=== PATIENT | female | born 1990 | race Native Hawaiian/Other Pacific Islander ===

== ENCOUNTER 2018-11-22 05:40 | Inpatient (IN) | payer OTHER ==
[2018-11-22] MEDS ORDERED: LACTATED RINGERS 1,000 ML ONE (05:47)
[2018-11-22 06:49] LABS: Hematocrit 36.7 % (30.3-42.9); Hemoglobin 12.7 gm/dl (10.1-14.3); Mean Corpuscular HGB Conc 35 % (30-34); Mean Corpuscular Volume 94 fl (79-97); Platelet Count 149 K/mm3 (140-440); Red Blood Count 3.89 M/mm3 (3.65-5.03); Red Cell Distribution Width 14.2 % (13.2-15.2)
[2018-11-22] MEDS ORDERED: LACTATED RINGERS 1,000 ML IV ONE (07:01)
--- NOTE | 2018-11-22 07:03 | Anesthesia Consultation ---
Anesthesia Consult and Med Hx Date of service: 11/22/18 - Airway Anesthetic Teeth Evaluation: Good ROM Head & Neck: Adequate Mental/Hyoid Distance: Adequate Mallampati Class: Class II Intubation Access Assessment: Probably Good - Pulmonary Exam CTA: Yes - Cardiac Exam Cardiac Exam: RRR - Pre-Operative Health Status ASA Pre-Surgery Classification: ASA2 Proposed Anesthetic Plan: Spinal - Pulmonary Hx Asthma: No COPD: No Hx Pneumonia: No - Cardiovascular System Hx Hypertension: No - Central Nervous System Hx Seizures: No Hx Psychiatric Problems: No - Endocrine Hx Renal Disease: No Hx End Stage Renal Disease: No Hx Hypothyroidism: No Hx Hyperthyroidism: No - Hematic Hx Anemia: No Hx Sickle Cell Disease: No - Other Systems Hx Alcohol Use: No
[2018-11-22] MEDS ORDERED: NARCAN 0.4 MG/1 ML IV PRN ×2 (07:04→10:19)
[2018-11-22] MEDS ORDERED: PHENERGAN PR PRN ×2 (07:04→10:11)
[2018-11-22] MEDS ORDERED: ZOFRAN IV PRN ×3 (07:04→10:19)
[2018-11-22] MEDS ORDERED: DILAUDID IV PRN ×2 (07:04)
[2018-11-22] MEDS ORDERED: PHENERGAN PO PRN ×2 (07:04→10:11)
[2018-11-22] MEDS ORDERED: NUBAIN IV PRN (07:04)
--- NOTE | 2018-11-22 07:04 | Anesthesia Day of Surgery ---
Anesthesia Day of Surgery - Day of Surgery Patient Examined: Yes Patient H&P Reviewed: Yes Patient is NPO: Yes
[2018-11-22] MEDS ORDERED: PITOCin/NS 20 UNIT/1000ML DRIP 20,000 MILLIUNITS/1,000 ML BAG IV ONE ×3 (07:17→10:24)
[2018-11-22] MEDS ORDERED: REGLAN ONE (07:17)
[2018-11-22] MEDS ORDERED: ANCEF/STERILE WATER 2 GM/20 ML 2 GM/20 ML SYRINGE IV ONE (07:18)
[2018-11-22] MEDS ORDERED: BICITRA ONE (07:18)
[2018-11-22] MEDS ORDERED: DEXMEDETOMIDINE IV ONE (07:21)
[2018-11-22] MEDS ORDERED: ZOFRAN ONE ×2 (07:29)
[2018-11-22] MEDS ORDERED: SODIUM CHLORIDE FLUSH SYRINGE 10 ML IV NR ×2 (08:00→11:00)
--- NOTE | 2018-11-22 08:32 | History and Physical Report ---
History of Present Illness Date of examination: 11/22/18 Date of admission: 11/22/18 05:57 Chief complaint: Here for a 4th delivery. History of present illness: , EDC 11/28/2018. Past History Past Medical History: no pertinent history - Obstetrical History : 4 Medications and Allergies Allergies Allergy/AdvReac Type Severity Reaction Status Date / Time No Known Allergies Allergy Unverified 11/22/18 05:59 Active Meds: Active Medications Hydromorphone HCl (Dilaudid) 0.5 mg IV Q4H PRN PRN Reason: breakthrough pain > 7/10 Hydromorphone HCl (Dilaudid) 0.5 mg IV Q5M PRN PRN Reason: Breakthrough Pain Stop: 11/22/18 18:00 Nalbuphine HCl (Nubain) 10 mg IV Q2H PRN PRN Reason: Pain, Moderate (4-6) Naloxone HCl (Narcan 0.4 Mg/1 Ml) 0.2 mg IV Q2MIN PRN PRN Reason: Res Rate </= 8 or 02 SAT < 92% Ondansetron HCl (Zofran) 4 mg IV Q8H PRN PRN Reason: Nausea And Vomiting Promethazine HCl (Phenergan) 25 mg PO Q6H PRN PRN Reason: Nausea And Vomiting Promethazine HCl (Phenergan) 25 mg [place] Q6H PRN PRN Reason: Nausea And Vomiting Sodium Chloride (Sodium Chloride Flush Syringe 10 Ml) 10 ml IV PRN NR Stop: 11/24/18 23:59 Review of Systems All systems: negative - Vital Signs Vital signs: Vital Signs Temp 98.5 F 11/22/18 08:10 Temp Pulse Resp BP Pulse Ox 98.5 F 96 H 119/73 11/22/18 08:10 11/22/18 08:22 11/22/18 08:22 - Physical Exam Breasts: Positive: deferred Lungs: Positive: Clear to auscultation Abdomen: Positive: soft Uterus: Positive: enlarged - Obstetrical FHR: category 1 Results Result Diagrams: 11/22/18 06:10 Abnormal lab results 11/22/18 Range/Units 06:10 MCH 33 H (28-32) pg MCHC 35 H (30-34) % All other labs normal. Assessment and Plan - Patient Problems (1) Current Visit: Yes Status: Acute (2) Previous delivery affecting , antepartum Current Visit: Yes Status: Acute Plan to address problem: For imminent delivery.
[2018-11-22] MEDS ORDERED: WATER FOR IRRIG STERILE IR ONE (08:51)
[2018-11-22] MEDS ORDERED: NACL 0.9% IR ONE (08:51)
[2018-11-22] MEDS ORDERED: PHENYLEPHRINE/NS Syringe 1,000 MCG/10 ML IV ONE (09:05)
[2018-11-22] MEDS ORDERED: BENADRYL ONE (09:48)
[2018-11-22] MEDS ORDERED: TORADOL ONE (09:48)
--- NOTE | 2018-11-22 10:11 | Post Anesthesia Evaluation ---
- Post Anesthesia Evaluation Patient Participated: Yes Airway Patent: Yes Stable Respiratory Function: Yes Nausea/Vomiting: No Temp > 96.8F: Yes Pain Manageable: Yes Adequeate Hydration: Yes Anesthesia Complications: No Block Receding Appropriately: Yes Patient on Ventilator: No
[2018-11-22] MEDS ORDERED: LANSINOH TP PRN (10:19)
[2018-11-22] MEDS ORDERED: TUCKS PAD TP PRN (10:19)
--- NOTE | 2018-11-22 10:31 | Operative Report ---
Operative Report Operative Report: Date of Surgery: . Admitting Dx: Term , 3 previous cesareans., probable adhesions. Post Op Dx: Same, plus peritoneal adhesions. Procedures: delivery, Lysis of adhesions. Surgeon: MD John Packer And Carry Out, Candis Domingo CRNA. Anesthesia: Spinal block. Complications: none EBL: 600cc Findings: Live baby boy 8lbs 13 oz, Apgars 9/9. In vertex presentation. Both ovaries and fallopian tubes were grossly normal. The anterior aspect of the uterus was bound by dense peritoneal adhesions to surrounding structures including the inferios aspect of the greater omentum and anterior abdominal wall. Procedure in details: The patient was taken to the operating room and given a spinal block. She was placed in the straight supine postion with a slight lateral tilt. An indwelling Crabtree's catheter was placed. She was draped. A time out was done. With the go ahead from the candy starch mold printer a Pfannenstiel incision was made. This was placed over a previous scar. The Fascia was divided transversely. The recti abdominis muscle flaps were dissected off the fascia using blunt and sharp dissections. The anterior parietal peritoneum was carefully identified and cut. The laparotomy was widened by stretching. The Bladder blade was applied. The utero vescical peritoneal flap was divided transversely allowing the bladder to be displaced caudally. The uterine incision was placed transversely in the lower segment. The cavity of the uterus was entered bluntly with the hemostat. The amniotic sac ruptured with clear fluid. The head of the was lifted out of the pelvis and delivered using fundal pressure. The airways were bulb suctioned beginning with the mouth. The umbilical cord was double clamped and divided. The baby was safely passed over to the Pediatric team. The placenta was manually removed. The uterine cavity was explored and was empty of any placental remnants. The uterine incision was repaired in one layer with #0 vicryl. The suture line was hemostatic. Blood and clots were cleared from the peritoneal cavity. The anterior parietal peritoneum was closed with #0vicryl. The fascia was closed with #0 vicryl. The skin was closed subcuticularly with #4-0 vicryl on a Bony needle. The patient tolerated the procedure well. There were no complications. EBL was 600cc. The sponge and instrument counts were correct. The Patient was transferred to the recovery room in very good condition.
[2018-11-22] MEDS ORDERED: PITOCin/NS 20 UNIT/1000ML DRIP 20 UNITS/1,000 ML BAG IV SCH ×2 (11:00→19:00)
[2018-11-22] MEDS ORDERED: METHERGINE IM ONE ×2 (11:10→11:11)
[2018-11-22] MEDS ORDERED: REGLAN IV ONE (11:16)
[2018-11-22] MEDS ORDERED: BICITRA PO ONE (11:17)
[2018-11-22] MEDS: TORADOL IV PRN ×2 (15:20→20:54)
[2018-11-22] MEDS: MORPHINE IV PRN (17:27)
[2018-11-22] MEDS: ANCEF/NS 1 GM/50 ML 1 GM/50 ML BAG IV SCH (17:27)
[2018-11-22] MEDS ORDERED: CYTOTEC PR ONE (18:07)
[2018-11-22] MEDS ORDERED: CYTOTEC ONE (18:18)
--- NOTE | 2018-11-22 19:25 | Event Note ---
Date: 11/22/18 Late entry for 6:20 PM: Was called to evaluate patient for vaginal bleeding around 6:00 PM. Patient alert and oriented, in no apparent distress. Patient denies dizziness, lightheadedness, chest pain, shortness of breath, or any other symptoms. Patient is post-op day of delivery after a repeat LTCS with lysis of adhesions. Patient is lying on a chux pad and also has a peripad on. Moderate amount of maroon lochia with clots noted on peripad; peripad saturated. No active bleeding noted. With fundal massage, small amount of maroon lochia expressed. No bright red bleeding at present time. Chux pad under buttocks has some bright red blood on it, but peripad has only maroon lochia with several clots. Fundus firm and midline at 2 FB above umbilicus. Crabtree catheter in place draining clear yellow urine. Consulted with Dr. Lopez re: patient and he states to run Pitocin all night and to give Cytotec rectally. Cytotec 800 mcg placed rectally at 18:20 per MD order. Pitocin orders put in per MD recommendation.
[2018-11-22 22:54] LABS: Hematocrit 29.1 % (30.3-42.9); Hemoglobin 10.1 gm/dl (10.1-14.3)
[2018-11-23] MEDS: MORPHINE IV PRN (03:09)
[2018-11-23] MEDS: ANCEF/NS 1 GM/50 ML 1 GM/50 ML BAG IV SCH (03:11)
[2018-11-23] MEDS: IBUPROFEN PO PRN ×3 (09:38→23:56)
[2018-11-23] MEDS: PRENATAL VITAMIN PO SCH (09:39)
[2018-11-23] MEDS: NORCO 5/325 PO PRN ×2 (09:39→16:50)
[2018-11-23] MEDS: FEOSOL PO SCH (09:43)
--- NOTE | 2018-11-23 12:03 | Progress Note ---
Assessment and Plan A: /postop day 1 S/P repeat low transverse section with lysis of adhesions. P: Encouraged ambulation today. Advance diet once patient is passing gas. Supplement with oral iron once tolerating a regular diet. Subjective - Subjective Date of service: 11/23/18 Principal diagnosis: /postop day 1 S/P repeat LTCS with lysis of adhesions Interval history: /postop day 1 S/P low transverse section with lysis of adhesions. Doing well. Patient reports small amount of lochia. Patient is voiding without difficulty. Not passing gas yet. Tolerating a liquid diet without nausea or vomiting. Patient has ambulated to bathroom; plans to ambulate in dang today. Patient denies headache, cough, dizziness, shortness of breath, chest pain, leg pain, abdominal pain, or heavy bleeding. Patient reports: appetite normal, voiding normally, pain well controlled, ambulating normally, no dizzy ambulation, no flatus, no nauseated [place]: doing well Objective - Vital Signs Latest vital signs: Vital Signs Temp Pulse Resp BP BP Pulse Ox 11/23/18 07:25 98.3 F 87 16 114/63 96 11/23/18 05:02 98.6 F 93 H 18 113/63 97 11/23/18 04:00 98.0 F 68 130/67 11/22/18 21:58 99.5 F 86 20 109/51 96 11/22/18 17:27 20 11/22/18 17:03 97.6 F 81 16 118/54 98 11/22/18 15:50 20 11/22/18 15:20 20 11/22/18 12:30 97.8 F 70 20 123/64 Intake and Output 11/22/18 11/23/18 11/23/18 23:59 07:59 15:59 Intake Total 170 240 120 Output Total 1300 650 Balance -1130 -410 120 Intake: IV 50 ANCEF/NS 1 GM/50 ML 1 gm 50 In 50 ml @ 100 mls/hr IV Q8H [facility] Rx#:[id number] Oral 120 240 120 Output: Urine 1300 650 Indwelling Catheter 1300 Void 650 Other: Total, Intake Amount 120 240 120 Total, Output Amount 600 350 # Voids Void 1 - Exam Abdomen: Present: normal appearance, soft, normal bowel sounds. Absent: distention, tenderness, guarding, rigidity Uterus: Present: normal, firm, fundal height below umbilicus. Absent: bogginess, tenderness Extremities: Present: normal, edema (mild bilateral pedal edema). Absent: tenderness Incision: Present: normal, dry, intact, dressed - Labs Labs: Abnormal lab results 11/22/18 Range/Units 22:33 Hct 29.1 L D (30.3-42.9) %
[2018-11-24] MEDS: NORCO 5/325 PO PRN ×2 (07:31→16:29)
[2018-11-24] MEDS: PRENATAL VITAMIN PO SCH (10:30)
[2018-11-24] MEDS: FEOSOL PO SCH (10:30)
--- NOTE | 2018-11-24 11:47 | Progress Note ---
Assessment and Plan A: /postop day 2 S/P repeat low transverse section with lysis of adhesions. Anemia secondary to and blood loss. P: Continue iron supplementation. Continue ambulation. Subjective - Subjective Date of service: 11/24/18 Principal diagnosis: /postop day 2 S/P repeat LTCS with lysis of adhesions Interval history: /postop day 2 S/P low transverse section with lysis of adhesions. Doing well. Patient reports small amount of lochia. Patient is voiding without difficulty. She is passing gas. Tolerating a regular diet without nausea or vomiting. She is ambulating well. Patient denies headache, cough, dizziness, shortness of breath, chest pain, leg pain, abdominal pain, or heavy bleeding. Patient reports: appetite normal, voiding normally, pain well controlled, flatus, ambulating normally, no dizzy ambulation, no nauseated : doing well Objective - Vital Signs Latest vital signs: Vital Signs Temp Pulse Resp BP BP Pulse Ox 11/24/18 07:10 98.4 F 78 16 113/61 96 11/24/18 03:57 98.2 F 73 19 112/67 99 11/24/18 00:14 98.5 F 98 H 20 113/57 99 11/23/18 15:51 98.4 F 83 16 110/58 97 Intake and Output 11/23/18 11/24/18 11/24/18 23:59 07:59 15:59 Intake Total 360 240 360 Output Total 700 Balance -340 240 360 Intake: Oral 360 240 360 Output: Urine 700 Void 700 Other: Total, Intake Amount 360 240 360 Total, Output Amount 700 # Voids Void 1 1 1 - Exam Abdomen: Present: normal appearance, soft, normal bowel sounds. Absent: distention, tenderness, guarding, rigidity Uterus: Present: normal, firm, fundal height below umbilicus. Absent: bogginess, tenderness Extremities: Present: normal. Absent: tenderness, edema Incision: Present: normal, dry, intact
[2018-11-24] MEDS: IBUPROFEN PO PRN (16:30)
[2018-11-25] MEDS: NORCO 5/325 PO PRN ×3 (00:06→12:28)
--- NOTE | 2018-11-25 10:44 | Progress Note ---
Assessment and Plan - Patient Problems (1) S/P repeat low transverse Current Visit: Yes Status: Acute Plan to address problem: POD 3 - stable Continue routine postop orders Ambulation, abdominal binder encouraged prn Discharge to home today Follow up at [facility] as needed or in 1 week for incision check (2) Anemia due to blood loss, acute Current Visit: Yes Status: Acute Plan to address problem: Asymptomatic Continue iron therapy Subjective - Subjective Date of service: 11/25/18 Principal diagnosis: POD #3; s/p Repeat LTCS Interval history: see H&P, Operative Report, Event Note and PP/[employer] Progress Notes Patient reports: appetite normal, voiding normally, pain well controlled, flatus, ambulating normally, no dizzy ambulation [place]: doing well, nursing well Objective - Vital Signs Latest vital signs: Vital Signs Temp Pulse Resp BP BP Pulse Ox 11/25/18 07:25 99.4 F 82 18 117/67 11/25/18 01:38 98.4 F 92 H 18 112/65 98 11/24/18 15:36 99.3 F 97 H 20 117/58 97 Intake and Output 11/24/18 11/25/18 11/25/18 23:59 07:59 15:59 Intake Total 240 1245 Balance 240 1245 Intake: Oral 240 760 Intake, Free Water 485 Other: Total, Intake Amount 240 480 # Voids Void 1 1 - Exam Cardiovascular: Present: Regular rate Lungs: Present: Clear to auscultation, Normal air movement Abdomen: Present: normal appearance, soft Vulva: both: normal Uterus: Present: normal, firm, fundal height below umbilicus Extremities: Present: normal Incision: Present: normal, dry, intact, other (steri strips in place) Comments: small lochia
--- NOTE | 2018-11-25 10:48 | Discharge Summary ---
Providers - Providers Date of Admission: 11/22/18 05:57 Date of discharge: 11/25/18 Attending physician: CORWIN MALONEY MD Primary care physician: CORWIN MALONEY MD Hospitalization Reason for admission: section, IUP at term Delivery: Procedure: repeat low transverse Episiotomy: none Laceration: none Incision: normal, dry, intact, other (steri strips in place) Other procedures: none complications: none Discharge diagnosis: IUP at term delivered baby: male Hospital course: Uncomplicated Condition at discharge: Stable Disposition: DC-01 TO HOME OR SELFCARE - Discharge Diagnoses (1) S/P repeat low transverse Status: Acute (2) Anemia due to blood loss, acute Status: Acute Comment: Asymptomatic Continue iron therapy Encouraged iron-rich foods Plan - Discharge Medications Prescriptions: Ibuprofen [Motrin 800 MG tab] 800 mg PO Q6H PRN #30 tablet PRN Reason: Pain, Mild (1-3) HYDROcodone/APAP 5-325 [[place] 5/325] 1 each PO Q4HR PRN #30 tablet PRN Reason: Pain - Provider Discharge Summary Activity: routine, no sex for 6 weeks, no heavy lifting 4 weeks, no strenuous exercise Diet: routine Instructions: routine Additional instructions: [] Smoking cessation referral if applicable(refer to patient education folder for contact #) [] Refer to [facility] Booklet Call your doctor immediately for: * Fever > 100.5 * Heavy vaginal bleeding ( >1 pad per hour) * Severe persistent headache * Shortness of breath * Reddened, hot, painful area to leg or breast * Drainage or odor from incision. * Keep incision clean and dry at all times and follow doctor's instructions regarding bathing/showering - Follow up plan Follow up: CORWIN MALONEY MD [Primary Care Provider] - 7 Days (Follow up at [facility] as needed or in 1 week for incision check)
[2018-11-25 11:46] VITALS: BP 128/59
[2018-11-25] MEDS: IBUPROFEN PO PRN (12:27)
[2018-11-25] MEDS: PRENATAL VITAMIN PO SCH (12:29)
== END 2018-11-25 13:40 | disposition home or self-care (01) | DRG 787 ==
LOC: APU 05:57 → OB 12:14
PROVIDERS: ADMIT Obstetrics & Gynecology; ATTEND Obstetrics & Gynecology
PROC: 10D00Z1 Extraction of Products of Conception, Low, Open Approach (ICD-10-PCS; principal; 2018-11-22)
DX: O34.211 Maternal care for low transverse scar from previous cesarean delivery (principal); D62 Acute posthemorrhagic anemia; Z37.0 Single live birth; O99.02 Anemia complicating childbirth
CPT/HCPCS: 36415; 85014; 85018; 85027; 86592; 86850; 86900; 86901; G0378; A6250; J0690; J1200; J1885; J2210; J2270; J2370; J2405; J2590; J2765; J3490; J7120